=== PATIENT | male | born 1985 | race Caucasian/White ===

== ENCOUNTER 2016-06-13 12:27 | Emergency (ER) | payer OTHER ==
[~2016-06-13] VITALS: Ht 175.3 cm; Wt 77.3 kg
[~2016-06-13 12:27] MED LIST: LORA-303 PO; PROZ20 PO
[2016-06-13 12:40] VITALS: BP 136/89; PULSE 95; RESP 16; O2SAT 99
--- NOTE | 2016-06-13 12:59 | ED.REPORT ---
HPI-General Illness Date of Service Jun 13, 2016 ED Provider: Rufina Kathleen MD Patient is a 31 year old male with a history of alcoholism, smoking, depression , and marijuana use presenting to the ED requesting medical clearance for [facility]. He wants to go to Crisis for alcohol detox and has a bed arranged. The patient has been in rehab before and was sober for four months. However he began drinking heavily just over two weeks ago, consuming one to two fifths per day. This rate is similar to before rehab. He has been trying to sober for the last two days, resulting in abdominal pain, nausea and vomiting two days ago. He drank some today, which resolved these withdrawal symptoms. His last drink was two hours ago. The pt was eating a minimal amount during his two weeks of heavy drinking, but ate last night. He denies black/bloody stools or a history of withdrawal seizures. Nursing Notes Stated Complaint: [facility] Chief Complaint: Substance Abuse Nursing Notes Reviewed: Yes Allergies: Coded Allergies: No Known Allergies (Unverified , 04/15/15) Scheduled Fluoxetine (Prozac) 20 Mg Capsule 20 MG PO DAILY Lorazepam (Ativan) 1 Mg Tablet 1 MG PO DIRECTED 2 mg every 6 hrs for 24 hrs then 1 mg every 6 hrs for 24 hrs then 1 mg every 8 hrs for 24 hrs then 1 mg every 12 hrs for 24 hrs and 1 mg on the final day Lorazepam (Ativan) 1 Mg Tablet 1 MG PO DIRECTED 2mg q6hrs x 24hrs, then 1mg q6hrs x 24hrs, then 1mg q8hrs x 24hrs, then 1mg q12hrs x 24hrs, then 1mg Scheduled PRN Lorazepam (Ativan) 1 Mg Tablet 1 MG PO DIRECTED PRN PRN For Anxiety Take 2 tablets by mouth every 6 hours for 24 hours, then take 1 tablet by mouth every 6 hours for 48 hours, then take 1 tablet by mouth every 12 hours for 24 hours. General Time Seen by MD: 12:58 Chief Complaint Other (Medical clearance) Hx Obtained From: Patient Arrived By: Walk-in Sudden in Onset?: No Onset Occurred: More than a week ago... (3 weeks) Symptom Duration: Since onset Recent Healthcare: No recent hospitalization, Recent doctor visit Similar Sx Previous: Yes Past Medical History Past Medical History history of alcohol abuse depression Past Surgical History denies Smoking History Current Every Day Smoker Social History Alcohol Use: >5 per day Drug Use: Meth, THC Occupation lives with family Ambulatory Status Independent Review of Systems Full Review of Systems Respiratory: Denies: Non-productive cough, Shortness of breath GI: Denies: Abdominal pain (experienced yesterday, denies currently), Bloody/ tarry stool, Nausea (experienced yesterday, denies currently), Vomiting ( experienced yesterday, denies currently) Neurologic: Denies: Seizure Complete sys rev & neg: except as marked. Physical Exam Vital Signs Vital Signs Date Time Temp Pulse Resp B/P Pulse Ox O2 Delivery O2 Flow Rate FiO2 06/13/16 12:40 36.8 95 16 136/89 99 Room Air Initial VS: Reviewed, Vital signs normal General/Constitutional: Awake, Alert, No acute distress Head / Eyes: Atraumatic, Normocephalic, PERRL, EOMI ENT: Atraumatic, Airway patent Mouth: Positive: Mucous membranes dry Neck: Atraumatic, Supple, Full range of motion Respiratory / Chest: Atraumatic, Breath sounds NL, Breath sounds = bilat, No respiratory distress Cardiovascular: Regular rhythm, Heart sounds NL Heart Rate / Rhythm: Positive: Tachycardia Abdomen: Atraumatic, Soft, Non-tender Back: Atraumatic, Full range of motion Upper Extremities Upper Extremity / MS: Atraumatic, Full range of motion Lower Extremity / Pelvis / MS: Atraumatic, Full range of motion Skin: Atraumatic, Color NL, No rash, Warm, Dry Neurologic: Oriented X3, Speech NL, No motor deficits, No sensory deficits Psychiatric: Affect NL, Mood NL Interpretation & Diagnostics Lab Results Interpretation Result Diagram: 06/13/16 1330 06/13/16 1330 Test 06/13/16 13:30 White Blood Count 7.5th/mm3 (3.8-10.1) Red Blood Count 5.27mil/mm3 (4.40-5.80) Hemoglobin 16.6g/dL (13.8-17.2) Hematocrit 47.3% (41.0-50.0) Mean Corpuscular Volume 89.8fL (81-100) Mean Corpuscular Hemoglobin 31.5pg (27.0-35.0) Mean Corpuscular Hemoglobin Concent 35.1% (32.0-37.0) Red Cell Distribution Width 12.8% (12.3-15.4) Platelet Count 182bil/L (150-400) Neutrophils (%) (Auto) 71.4% (40-74) Lymphocytes (%) (Auto) 18.0% (14-46) Monocytes (%) (Auto) 9.1% (4-12) Eosinophils (%) (Auto) 1.1% (0-5) Basophils (%) (Auto) 0.3% (0-3) Sodium Level 139mEq/L (134-144) Potassium Level 4.2mEq/L (3.5-5.2) Chloride Level 99mEq/L (97-108) Carbon Dioxide Level 23mmol/L (18-29) Blood Urea Nitrogen 13mg/dL (6-20) Creatinine 0.68mg/dL (0.76-1.27) Estimat Glomerular Filtration Rate 144mL/min (>59) Glucose Level 90mg/dL (60-99) Calcium Level 9.3mg/dL (8.5-10.1) Magnesium Level 2.4mg/dL (1.6-2.6) Total Bilirubin 0.4mg/dL (0.0-1.2) Aspartate Amino Transf (AST/SGOT) 53U/L (0-50) Alanine Aminotransferase (ALT/SGPT) 43U/L (0-44) Alkaline Phosphatase 81U/L (25-150) Total Protein 7.7g/dL (6.4-8.4) Albumin 4.6g/dL (3.4-5.0) Lipase 24U/L (13-60) Hold Bell Top Tube Received (Received) Re-Eval/Medical Decision Med Decision/Clinical Course The patient presents for clearance for crisis respite, he does not have any physical complaints currently. He was clinically dehydrated and was able to tolerate oral fluids. He was medically cleared for detox and was given a taper of Ativan. Source of Hx: Old records Time of Eval: 14:15 Patient Status: Condition improved Re-Evaluation/Progress Note: Rechecked patient. Discussed plan for discharge to Crisis. The patient understands and agrees the plan for discharge. All questions were addressed at this time. Counseled Regarding: Diagnosis, Lab results, Need for follow-up, When/why to return to ED Discharge & Departure Primary Impression: Alcohol abuse Disposition: Home Discharge Condition All VS Reviewed: Yes Condition: Stable Patient Instructions: Abuse of Alcohol (ED) Additional Instructions: Instructed to go to detox with medication. Return to the emergency department if any new or worsening symptoms develop. Referrals: [facility] Crisis [facility] Scribe Attestation Portions of this note were transcribed by Lety Mahoney and Chapito Vallejo. I, Dr. Kathleen personally performed the history, physical exam and medical decision- making; I reviewed and confirmed the accuracy of the information in the transcribed note. Signed by: Lety Mahoney and Chapito Vallejo, Phong, 06/13/16 and 1532. copies to: [facility] ; Crisis [facility]pite Rufina Kathleen MD Jun 13, 2016 12:58 Rosibel Mahoney Jun 13, 2016 13:51 CHAPITO VALLEJO Jun 13, 2016 15:28
[2016-06-13] MEDS ORDERED: Ondansetron 8 mg ODT Tablet PO ONE (13:25)
[2016-06-13] MEDS ORDERED: _LORazepam 2 MG Tablet PO SCH (13:30)
[2016-06-13 13:49] LABS: BASOPHILS % (AUTO) 0.3 % (0-3); EOSINOPHILS % (AUTO) 1.1 % (0-5); MONOCYTES % (AUTO) 9.1 % (4-12); Mean Corpuscular Hemoglobin 31.5 pg (27.0-35.0); Mean Corpuscular Volume 89.8 fL (81-100); NEUTROPHILS % (AUTO) 71.4 % (40-74); Platelet Count 182 bil/L (150-400)
[2016-06-13 14:19] LABS: Magnesium 2.4 mg/dL (1.6-2.6)
== END 2016-06-13 14:39 | disposition home or self-care (01) ==
LOC: SED 12:27
DX: F10.20 Alcohol dependence, uncomplicated (principal); F32.9 Major depressive disorder, single episode, unspecified; F12.20 Cannabis dependence, uncomplicated; F17.200 Nicotine dependence, unspecified, uncomplicated